=== PATIENT | female | born 1985 | race Caucasian/White ===

== ENCOUNTER 2021-06-01 20:04 | Emergency (ER) | payer OTHER ==
[~2021-06-01 20:04] MED LIST: ACTIGALL300 MG PO; COLACE 100MG C100 MG PO; IBUPROFEN600 MG PO; IRON325 M1 PO; KEFLEX CAP 500500 MG PO; LODINE CAP 300300 MG PO; LORTAB 5-325 M1 EACH PO; NORCO 5-325 TA1 EACH PO; TAMIFLU75 MG PO; TESSALON PERLE100 MG PO; VENTOLIN HFA 66.7 GM INH; ZOFRAN ODT 4 MG4 MG PO
== END 2021-06-01 20:19 | disposition left against medical advice (07) ==
LOC: ER1 20:04
DX: Z53.21 Procedure and treatment not carried out due to patient leaving prior to being seen by health care provider (principal)